=== PATIENT | male | born 1990 | race Native Hawaiian/Other Pacific Islander ===

== ENCOUNTER 2019-12-31 07:21 | Emergency (ER) | payer BC ==
[~2019-12-31] VITALS: Ht 172.7 cm; Wt 102.1 kg
[2019-12-31 08:27] VITALS: BP 150/95; TEMP 98.9
== END 2019-12-31 08:34 | disposition home or self-care (01) ==
LOC: ED 07:21
DX: S46.812A Strain of other muscles, fascia and tendons at shoulder and upper arm level, left arm, initial encounter (principal)
CPT/HCPCS: 99282; 99283